=== PATIENT | female | born 1935 | race African-American/Black ===

== ENCOUNTER 2016-08-24 10:51 | Emergency (ER) | payer MEDICARE, OTHER ==
[2016-08-24 12:00] LABS: Basophils # (auto) 0 uL; Basophils % (auto) 0.2 % (0.0-2.0); Eosinophils # (auto) 0.1 uL; Eosinophils % (auto) 0.9 % (0.0-7.0); Hematocrit 36.7 % (36.0-46.0); Hemoglobin 12.2 g/dL (12.2-16.2); Lymphocytes # (auto) 0.7 uL; Lymphocytes % (auto) 10.6 % (10.0-50.0); Mean Corpuscular Hemoglobin 28.3 pg (28.0-32.0); Mean Corpuscular Hgb Conc. 33.3 g/dL (32.0-36.0); Mean Platelet Volume 8.6 fL (7.4-10.4); Monocytes # (auto) 0.3 uL; Neutrophils # (auto) 5.9 uL; Neutrophils % (auto) 84.3 % (37.0-80.0); Platelet Count (auto) 213 10^3/uL (140-450); Red Cell Distribution Width 12.2 % (11.6-16.0); SUSPECT VIEW TRANSMISSION
[2016-08-24 12:07] VITALS: BP 105/53
[2016-08-24 12:24] LABS: Alkaline Phosphatase 83 U/L (45-117); Anion Gap 12 (5-15); Aspartate Aminotransferase 33 U/L (15-37); BUN/Creatinine Ratio 15.6; Bilirubin, Total 0.4 mg/dL (0.2-1.0); Blood Urea Nitrogen 26 mg/dL (7-18); Carbon Dioxide 22 mmol/L (21-32); Chloride 112 mmol/L (98-107); GFR African American 38 mL/min; GFR Non-African American 31 mL/min; Glucose 81 mg/dL (74-106); Magnesium 2.9 mg/dL (1.6-2.6); Potassium 4.7 mmol/L (3.5-5.1); Sodium 146 mmol/L (136-145); Total Protein 8.4 g/dL (6.4-8.2)
== END 2016-08-24 14:36 | disposition home or self-care (01) ==
LOC: EDBD 10:53 → ER 10:53
DX: R07.89 Other chest pain (principal); J44.9 Chronic obstructive pulmonary disease, unspecified; K46.9 Unspecified abdominal hernia without obstruction or gangrene
CPT/HCPCS: 36415; 71020; 74176; 80053; 83735; 84484; 85025; 93005; 94761

== ENCOUNTER 2018-11-26 13:00 | Inpatient (IN) | payer MEDICARE, OTHER, BC | END 2018-11-28 13:55 | disposition home health service (06) | LOC: ER 13:00 → TELE 13:01 → TELE-EAST 20:33 | DX: G45.9 Transient cerebral ischemic attack, unspecified (principal); N17.9 Acute kidney failure, unspecified; G30.9 Alzheimer's disease, unspecified; M19.90 Unspecified osteoarthritis, unspecified site; I12.9 Hypertensive chronic kidney disease with stage 1 through stage 4 chronic kidney disease, or unspecified chronic kidney disease; N18.3 Chronic kidney disease, stage 3 (moderate); E66.9 Obesity, unspecified; Z86.73 Personal history of transient ischemic attack (TIA), and cerebral infarction without residual deficits; F02.80 Dementia in other diseases classified elsewhere, unspecified severity, without behavioral disturbance, psychotic disturbance, mood disturbance, and anxiety; R26.9 Unspecified abnormalities of gait and mobility; I67.2 Cerebral atherosclerosis; G93.89 Other specified disorders of brain ==